=== PATIENT | female | born 1950 | race Caucasian/White ===

== ENCOUNTER 2019-02-13 11:28 | Emergency (ER) | payer BC, MEDICARE ==
--- NOTE | 2019-02-13 11:50 | UC ---
Hand/Wrist HPI - HPI Summary HPI Summary: 68-year-old female who was walking 3 days ago and when she arrived home she fell onto her right side injuring her right hip, right knee, left wrist and left hand. She denies hitting her head, she denies passing out, she denies neck pain. - History Of Current Complaint Stated Complaint: S/P FALL WRIST/R ELBOW/KNEE INJ Time Seen by Provider: 02/13/19 11:48 Hx Obtained From: Patient ?: No Onset/Duration: Sudden Onset Severity Initially: Mild Severity Currently: Mild Character Of Pain: Dull, Aching Aggravating Factor(s): Movement, Flexion, Extension Alleviating Factor(s): Rest Associated Signs And Symptoms: Positive: Negative - Allergies/Home Medications Allergies/Adverse Reactions: Allergies Allergy/AdvReac Type Severity Reaction Status Date / Time No Known Allergies Allergy Verified 02/13/19 11:45 Home Medications: Home Medications Aspirin [Aspirin Childrens 81 MG] 81 mg PO DAILY 02/13/19 [History Confirmed ] Atorvastatin* [Lipitor*] 20 mg PO DAILY 02/13/19 [History Confirmed 02/13/19] BuPROPion XL* [Bupropion XL*] 150 mg PO DAILY 02/13/19 [History Confirmed ] Gabapentin CAP(*) [Neurontin 300 CAP(*)] 300 mg PO TID 02/13/19 [History Confirmed 02/13/19] Insulin Detemir [Levemir Flextouch] 18 unit SC BEDTIME 02/13/19 [History Confirmed 02/13/19] Insulin GLARGINE(*) [Lantus(*)] 1 dose SUBCUT SEE INSTRUCTIONS 02/13/19 [ History Confirmed 02/13/19] Lisinopril TAB* [Prinivil TAB*] 20 mg PO DAILY 02/13/19 [History Confirmed 02/13] Pantoprazole TAB * [Protonix TAB*] 40 mg PO DAILY 02/13/19 [History Confirmed ] Pioglitazone TAB* [Actos TAB*] 15 mg PO DAILY 02/13/19 [History Confirmed ] Sertraline* [Zoloft*] 100 mg PO BEDTIME 02/13/19 [History Confirmed 02/13/19] metFORMIN* [Glucophage 1000 MG TAB *] 1,000 mg PO BID 02/13/19 [History Confirmed 02/13/19] PMH/Surg Hx/FS Hx/Imm Hx Previously Healthy: Yes Endocrine History: Diabetes Cardiovascular History: Hypertension - Family History Known Family History: Positive: Non-Contributory - Social History Lives: Alone Review of Systems All Other Systems Reviewed And Are Negative: Yes Skin: Positive: Bruising - Bruising to left hand, thenar eminence Musculoskeletal: Positive: Other: - Pain right hip and right knee, left hand and wrist. Is Patient Immunocompromised?: No Physical Exam Triage Information Reviewed: Yes Appearance: Well-Appearing, No Pain Distress, Well-Nourished Vital Signs Reviewed: Yes Eyes: Positive: Conjunctiva Clear ENT: Positive: Hearing grossly normal, Pharynx normal, TMs normal, Uvula midline Neck: Positive: Supple, Nontender - C-spine nontender, No Lymphadenopathy Respiratory: Positive: Chest non-tender, Lungs clear, Normal breath sounds, No respiratory distress, No accessory muscle use Cardiovascular: Positive: RRR, No Murmur, Pulses Normal, Brisk Capillary Refill Abdomen Description: Positive: Nontender, No Organomegaly, Soft. Negative: CVA Tenderness (R), CVA Tenderness (L) Bowel Sounds: Positive: Present Musculoskeletal: Positive: Strength Intact, ROM Intact, Other: - Pain right hip when standing up or lifting her leg, pain the lateral right knee with flexion and extension, pain left wrist ulnar aspect on palpation. No bruising, erythema , deformity or swelling. Left thenar eminence is bruised with tenderness on palpation, scaphoid nontender. Good peripheral pulses neuro sensation capillary refill. Good finger strength with flexion extension against resistance. Neurological: Positive: Alert, Muscle Tone Normal Psychological Exam: Normal Skin: Positive: Other - See above notes. Hand/Wrist Course/Dx - Course Course Of Treatment: Right hip x-ray: INDICATION: Right hip injury and pain. 2 views of the right hip and an AP view the pelvis demonstrates marked degenerative changes of the right hip. Pelvic ring is intact. Degenerative changes of the pubic symphysis is noted. IMPRESSION : Moderate degree of degenerative changes of the right hip. Pelvic ring is intact. Right knee x-ray: VIEWS: 4, Frontal, lateral, axial, and oblique views of the right knee FINDINGS : BONE DENSITY: There is diffuse osteopenia. BONES: There is no displaced fracture. JOINTS: There is moderate tricompartmental osteoarthritis. There is chondrocalcinosis. There is no suprapatellar joint effusion or lipohemarthrosis. ALIGNMENT: There is no dislocation. SOFT TISSUES: Unremarkable. OTHER FINDINGS: None. IMPRESSION: OSTEOPENIA. OSTEOARTHRITIS. NO ACUTE OSSEOUS INJURY. IF SYMPTOMS PERSIST, RECOMMEND REPEAT IMAGING Left wrist x-ray: FINDINGS: BONE DENSITY: There is diffuse osteopenia. BONES: There is no displaced fracture. JOINTS: There is advanced osteoarthritis of the first CMC and STT joints. There is osteoarthritis of the distal radial-ulnar articulation. There is osteoarthritis of the interphalangeal joints. There is chondrocalcinosis. ALIGNMENT: There is no dislocation. SOFT TISSUES: Unremarkable. OTHER FINDINGS: None. IMPRESSION: 1. OSTEOPENIA. 2. OSTEOARTHRITIS. 3. NO ACUTE OSSEOUS INJURY. THE DEGREE OF OSTEOPENIA MAY MAKE A NONDISPLACED FRACTURE RADIOGRAPHICALLY OCCULT. IF SYMPTOMS PERSIST, RECOMMEND REPEAT IMAGING. Left hand x-ray: FINDINGS: BONE DENSITY: There is diffuse osteopenia. BONES: There is no displaced fracture. JOINTS: There is advanced osteoarthritis of the first CMC and STT joints. There is osteoarthritis of the distal radial-ulnar articulation. There is osteoarthritis of the interphalangeal joints. There is chondrocalcinosis. ALIGNMENT: There is no dislocation. SOFT TISSUES: Unremarkable. OTHER FINDINGS: None. IMPRESSION: 1. OSTEOPENIA. 2. OSTEOARTHRITIS. 3. NO ACUTE OSSEOUS INJURY. THE DEGREE OF OSTEOPENIA MAY MAKE A NONDISPLACED FRACTURE RADIOGRAPHICALLY OCCULT. IF SYMPTOMS PERSIST, RECOMMEND REPEAT IMAGING. - Differential Dx/Diagnosis Provider Diagnosis: Contusion of left hand, Strain of right knee, Right hip pain, Left wrist sprain Discharge ED - Sign-Out/Discharge Documenting (check all that apply): Patient Departure All imaging exams completed and their final reports reviewed: Yes - Discharge Plan Condition: Good Disposition: HOME Patient Education Materials: Contusion in Adults (ED) Referrals: Bonita Bauer MD [Primary Care Provider] - Additional Instructions: May take Tylenol every 4 hours as needed for pain. May apply heat to the sore areas. Definite follow-up with your primary care provider if you have continued pain in 4 or 5 days. - Billing Disposition and Condition Condition: GOOD Disposition: Home
== END 2019-02-13 13:10 | disposition home or self-care (01) ==
LOC: UCCORT 11:28
DX: S60.222A Contusion of left hand, initial encounter (principal); S86.911A Strain of unspecified muscle(s) and tendon(s) at lower leg level, right leg, initial encounter; S63.502A Unspecified sprain of left wrist, initial encounter; W18.30XA Fall on same level, unspecified, initial encounter; Y93.01 Activity, walking, marching and hiking; Y92.009 Unspecified place in unspecified non-institutional (private) residence as the place of occurrence of the external cause; M16.11 Unilateral primary osteoarthritis, right hip; M17.11 Unilateral primary osteoarthritis, right knee; M85.861 Other specified disorders of bone density and structure, right lower leg; M85.842 Other specified disorders of bone density and structure, left hand; M19.041 Primary osteoarthritis, right hand; M85.832 Other specified disorders of bone density and structure, left forearm; M19.032 Primary osteoarthritis, left wrist; E11.9 Type 2 diabetes mellitus without complications; Z79.4 Long term (current) use of insulin; Z79.84 Long term (current) use of oral hypoglycemic drugs; I10 Essential (primary) hypertension; Z79.82 Long term (current) use of aspirin
CPT/HCPCS: 99201; G0463

== ENCOUNTER 2019-06-30 13:30 | Emergency (ER) | payer MEDICARE ==
--- OUTSIDE RECORDS SUMMARY | 2019-06-30 13:54 | XMS REPORT | Continuity of Care Document ---
:1950 External Reference #:[id number] Author Name Glory Parisi MD Address [address] [place] [address] Care Team Providers Name Role Phone Bonita Bauer MD - Family Medicine Care Team Information Punching Machine Operator [phone] Problems Active Problems Provider Date Skin sensation disturbance Franchesca Dubose MD Onset: 10/21/2017 Bilateral carpal tunnel syndrome Jeff Bacon M.D. Onset: 10/23/2017 Lesion of ulnar nerve Glory Parisi MD Onset: 02/10/2018 Social History Type Date Description Comments Sex Unknown Tobacco Use Start: Unknown Never Smoked Cigarettes Tobacco Use Start: Unknown Never Smoked Cigars Tobacco Use Start: Unknown Never Smoked A Pipe Smokeless Tobacco Never Used Smokeless Tobacco ETOH Use Rarely consumes alcohol Recreational Drug Use Denies Drug Use Tobacco Use Start: Unknown Patient denies history of smoking Smoking Status Reviewed: 05/18/19 Patient denies history of smoking Allergies, Adverse Reactions, Alerts Active Allergies Reaction Severity Comments Date NKDA 04/14/2015 Seasonal 04/14/2015 Inactive Allergies NKDA 02/03/2009 Medications Active Medications SIG Qnty Indications Ordering Provider Date Tylenol 8 Hour 1 tab by mouth 60tabs Jeff Bacon, 10/23/2017 Arthritis Pain every 6 hours M.D. 650mg pain Tablets ER Lisinopril 1 po qd 30tabs Unknown 20mg Tablets Metformin HCL 1 po bid Unknown 500mg Tablets Levemir 28 units nightly Unknown 100Unit/ML Solution Atorvastatin Calcium 1 tab by mouth 30tabs Unknown 20mg every day Tablets Actos 1 tab by mouth Unknown Tablets every day Pantoprazole Sodium 1 by mouth every 30tabs Unknown 40mg day Tablets Gabapentin 1 by mouth three Unknown 300mg Capsules times a day Bupropion HCL ER (SR) 1 by mouth every 60tabs Unknown day 150mg Tablets ER 12HR Sertraline HCL 1 tab by mouth 90tabs Unknown 50mg every day Tablets Multi Vitamin 1 by mouth every Unknown Tablets day Dennis Aspirin Ec Low 1 tab by mouth Unknown Dose every day 81mg Tablets DR Humberto [place] Test Blood Sugar Unknown Strips Daily And as Needed Ibuprofen 2 by mouth three Unknown 200mg Capsules times a day as needed Medications Administered in Office Medication SIG Qnty Indications Ordering Provider Date Depomedrol 40mg/1cc Glory Parisi MD 03/11/2019 (methylprednisolone acetate) Injection Methylprednisolone acetate Lola Miller, 09/06/2017 (Depomedrol) 80mg injection RPAC Injection Immunizations Description No Information Available Vital Signs Date Vital Result Comment 05/18/2019 9:02am BP Systolic Sitting Left Arm 119 mmHg BP Diastolic Sitting Left Arm 72 mmHg Heart Rate 76 /min 03/11/2019 2:48pm BP Systolic 118 mmHg BP Diastolic 70 mmHg Body Temperature 98.0 F Heart Rate 74 /min Height 60.5 inches 5'0.50" Weight 199.00 lb BMI (Body Mass Index) 38.2 kg/m2 BSA (Body Surface Area) 1.87 m2 [place] body weight in kilograms 47 kg O2 % BldC Oximetry 98 % Results Description No Information Available Procedures Date Code Description Status 03/11/2019 86181 Asp./Injection major joint Completed 06/03/2008 71703041 Mammogram Completed 11/11/2006 [id number] Mammogram Completed 08/22/2005 [id number] Mammogram Completed 04/05/2004 [id number] Mammogram Completed Medical Devices Description No Information Available Encounters Type Date Location Provider Dx Diagnosis Office Visit 05/18/2019 Orthopaedic Office Glory Parisi, M54.16 Radiculopathy, 9:15a lumbar region M16.11 Unilateral primary osteoarthritis, right hip Office Visit 03/11/2019 2:45p [facility]opa[facility] Office Glory Parisi M25.551 Pain in right hip M70.61 Trochanteric bursitis, right hip M54.16 Radiculopathy, lumbar region W19.xxxA Unspecified fall, initial encounter Assessments Date Code Description Provider 05/18/2019 M54.16 Radiculopathy, lumbar region Glory Parisi MD 05/18/2019 M16.11 Unilateral primary osteoarthritis, right hip Glory Parisi MD 03/11/2019 M25.551 Pain in right hip Glory Parisi MD 03/11/2019 M70.61 Trochanteric bursitis, right hip Glory Parisi MD 03/11/2019 M54.16 Radiculopathy, lumbar region Glory Parisi MD 03/11/2019 W19.xxxA Unspecified fall, initial encounter Glory Parisi MD Plan of Treatment Future Appointment(s):06/29/2019 9:15 am - Glory Parisi MD at [id number]/18/2019 - Glory Parisi, MDM54.16 Radiculopathy, lumbar quxmkiG72.11 Unilateral primary osteoarthritis, right hip Functional Status Functional Condition Comment Date Status Glasses Active Mental Status Description No Information Available Referrals Description No Information Available
[2019-06-30 14:02] VITALS: BP 130/70
--- NOTE | 2019-06-30 14:12 | UC ---
Shoulder Pain HPI - HPI Summary HPI Summary: Patient is a 68yo female presenting with daughter's boyfriend for L shoulder/ arm pain after falling around 1200 today. Patient states she woke up from a nap and was walking to the bathroom when she tripped and fell forward. States unable to raise arm d/t pain. Unsure or swelling or bruising. Denies numbness and tingling. States she took tylenol right before coming in. - History of Current Complaint Chief Complaint: UCUpperExtremity Stated Complaint: L SHOULDER INJ Hx Obtained From: Patient Pain Intensity: 10 - Allergies/Home Medications Allergies/Adverse Reactions: Allergies Allergy/AdvReac Type Severity Reaction Status Date / Time No Known Allergies Allergy Verified 02/13/19 11:45 PMH/Surg Hx/FS Hx/Imm Hx Endocrine History: Diabetes, Dyslipidemia Cardiovascular History: Hypertension - Surgical History Surgical History: Yes Surgery Procedure, Year, and Place: bilateral carpal tunnel. choly. tubal. cataract - Family History Known Family History: Positive: Non-Contributory - Social History Alcohol Use: None Substance Use Type: None Smoking Status (MU): Never Smoked Tobacco Review of Systems All Other Systems Reviewed And Are Negative: Yes Constitutional: Positive: Negative Skin: Positive: Negative Respiratory: Positive: Negative Cardiovascular: Positive: Negative Musculoskeletal: Positive: Arthralgia - L shoulder/arm, Decreased ROM - L arm. Negative: Edema Neurological: Negative: Paresthesia, Numbness Physical Exam - Summary Physical Exam Summary: Vital Signs Reviewed: Yes A+Ox3, pain distress Eyes: Conjunctiva Clear ENT: Hearing grossly normal neck: supple Respiratory: Positive: No respiratory distress, No accessory muscle use Cardiovascular: skin color reflect adequate perfusion Musculoskeletal Exam: DIAZ x 4 without difficulty, patient unable to lift L arm d /t pain. +TTP of L anterior shoulder and proximal humerus. no erythema or ecchymosis. no obvious deformity. no edema. Neurological: Positive: Alert, ambulatory without difficulty Psychological: Positive: Normal Response To Family Skin: Positive: no rash, no ecchymosis Vital Signs: Initial Vital Signs Temp 97.8 F 06/30/19 13:58 Pulse 93 06/30/19 13:58 Resp 14 06/30/19 13:58 BP 130/70 06/30/19 13:58 Pulse Ox 98 06/30/19 13:58 Diagnostics - Radiology L humerus Radiology Interpretation Completed By: Radiologist Summary of Radiographic Findings: IMPRESSION: COMMINUTED SLIGHTLY DISPLACED FRACTURE OF THE PROXIMAL HUMERUS. Shoulder Course/Dx - Course Course Of Treatment: Patient presenting with L arm pain after fall today at 1200. Patient received ibuprofen, sling, and ice for pain relief. Radiograph revealed proximal humerus fracture. I called Dr. Avalos's office and set up appt tomorrow at 9:30. Instructed patient to keep sling on and continue with ice and otc analgesics. Patient voiced understanding and agreed with treatment plan. - Differential Dx/Diagnosis Provider Diagnosis: Fracture of proximal end of left humerus Discharge ED - Sign-Out/Discharge Documenting (check all that apply): Patient Departure All imaging exams completed and their final reports reviewed: Yes - Discharge Plan Condition: Stable Disposition: HOME Patient Education Materials: Proximal Humerus Fracture (ED) Referrals: Erwin Avalos MD [Medical Doctor] - 07/01/19 9:30 am Additional Instructions: As discussed, you have a fractured humerus. You may continue with tylenol and ibuprofen as directed for pain relief. Continue to apply ice. Keep the sling in place until you follow up with orthopedics. You have an appointment tomorrow morning at 9:[address] Avalos, listed below. - Billing Disposition and Condition Condition: STABLE Disposition: Home
[2019-06-30] MEDS ORDERED: Ibuprofen TAB* 600 MG PO ONE (14:23)
== END 2019-06-30 15:13 | disposition home or self-care (01) ==
LOC: UCCORT 13:30
DX: S42.202A Unspecified fracture of upper end of left humerus, initial encounter for closed fracture (principal); I10 Essential (primary) hypertension; W01.0XXA Fall on same level from slipping, tripping and stumbling without subsequent striking against object, initial encounter; Y92.9 Unspecified place or not applicable
CPT/HCPCS: 99212; A9270-GY; G0463